=== PATIENT | female | born 1985 | race Caucasian/White ===

== ENCOUNTER 2019-09-01 13:27 | Outpatient (RCR) | payer OTHER, SELFPAY ==
[2019-09-01 13:27] VITALS: BP 128/75; PULSE 100
== END 2019-09-16 08:10 | disposition home or self-care (01) ==
LOC: ANHOBOP 13:27
PROVIDERS: PCP Family Medicine; Visit Provider Obstetrics & Gynecology
DX: O16.3 Unspecified maternal hypertension, third trimester (principal); Z3A.36 36 weeks gestation of pregnancy
CPT/HCPCS: 59025

== ENCOUNTER 2019-09-15 06:04 | Inpatient (IN) | payer OTHER, SELFPAY ==
[2019-09-15] VITALS (163 sets, daily range): BP systolic 76–152; BP diastolic 43–105; PULSE 66–153; RESP 12–18; TEMP 36.6–37.6; O2SAT 95–100; BMI 38.9
[2019-09-15 06:38] LABS: Basophils Absolute Auto 0.1 K/mm3 (0.0-0.1); Basophils Percent Auto 0.5 % (0.2-1.2); Eosinophils Absolute Auto 0.1 K/mm3 (0-0.3); Eosinophils Percent Auto 0.6 % (0-4.4); Hematocrit 34.6 % (37.0-47.0); Hemoglobin 11.5 g/dL (12.0-15.0); Immature Granulocyte Absolute 0.07 K/mm3 (0.00-0.031); Immature Granulocyte Percent A 0.7 % (0-0.5); Lymphocytes Absolute Auto 1.76 K/mm3 (0.9-3.2); Lymphocytes Percent Auto 18.8 % (18.3-44.2); Mean Corpuscular HGB Conc 33.2 g/dl (32-36); Mean Corpuscular Hemoglobin 29.5 pg (26-34); Mean Corpuscular Volume 88.7 fl (80-100); Mean Platelet Volume 9.7 fl (7.4-10.4); Monocytes Absolute Auto 0.7 K/mm3 (0.1-0.6); Monocytes Percent Auto 7.1 % (2.6-8.5); Neutrophils Absolute Auto 6.7 K/mm3 (1.3-6.7); Neutrophils Percent Auto 72.3 % (45.5-73.1); Platelet Count Result 203 k/mm3 (150-375); White Blood Count 9.3 K/mm3 (4.5-10.0)
--- NOTE | 2019-09-15 06:48 | LDADM ---
This patient, Tosha Vidal, was admitted to Labor/Delivery/Recovery 104 on 09/15/19 at 06:04. Plans for labor, pain management and were discussed with patient. Patient/family oriented to hospital policies and general routines including ID bracelet, bed and alarms, visiting hours, pain management, procedures, bathroom and other care routines, personal items, smoking policy, room service/diet and guest tray routines, security routines, and visiting hours. Patient/Family are encouraged to report perceived risks to care and to ask questions if they do not understand what they are told or what they should do. See OBIX for further documentation.
[2019-09-15] MEDS: LACTATED RINGERS 1,000 ML 125 ML IV CONT ×4 (07:30→18:53)
[2019-09-15] MEDS: OXYTOCIN 30 UNITS/NS 500 ML 30 UNITS/500 ML BAG IV CONT (07:30)
--- NOTE | 2019-09-15 07:52 | WPDOBADMIT ---
Obstetrics - Admit Note Admission Note: record reviewed. No pertinent additions to the history and/or any subsequent changes in the physical findings that are not consistent with the expected course of the were found. Additions to the history and/or subsequent changes in the physical findings follow. at 38 weeks for induction of labor due to chronic HTN. Cervix 3/50/-2. AROM with clear fluid. GBS negative.
[2019-09-15] MEDS: SODIUM CHLORIDE 0.9% IV 1,000 ML 150 ML I-UTERINE (10:15)
[2019-09-15 11:35] LABS: Rapid Plasma Reagin Non-Reactive (NonReactive)
--- NOTE | 2019-09-15 18:49 | P.PNOB_ITS ---
OB - PN: Subj Subjective Date/time seen: 09/15/19 18:49 OB - PN: Obj Data Labs CBC & Chem 7: 09/15/19 06:32 Labs: Laboratory Results - last 24 hr 09/15/19 09/15/19 09/15/19 06:32 06:32 06:32 WBC 9.3 RBC 3.90 L Hgb 11.5 L Hct 34.6 L MCV 88.7 MCH 29.5 MCHC 33.2 RDW 13.0 Plt Count 203 MPV 9.7 Immature Gran % (Auto) 0.7 H Neut % (Auto) 72.3 Lymph % (Auto) 18.8 Millard % (Auto) 7.1 Eos % (Auto) 0.6 Baso % (Auto) 0.5 Lymph # (Auto) 1.76 Millard # (Auto) 0.7 H Eos # (Auto) 0.1 Baso # (Auto) 0.1 Abs Immat Gran (auto) 0.07 H Absolute Neuts (auto) 6.7 Absolute Nucleated RBC 0.0 Nucleated RBC % 0.0 RPR Non-reactive Blood Type O Positive Antibody Screen Negative OB - PN A/P Assessment and Plan (1) Failure to progress in labor: Code(s): O62.2 - Other uterine inertia Status: Acute (2) Non-reassuring heart rate or rhythm affecting management of mother: Code(s): O36.8390 - Maternal care for abnormalities of the heart rate or rhythm, unspecified trimester, not applicable or unspecified Status: Acute Assessment and Plan: This patient is a 33-year-old 2 para 1001 at term who proceeded through labor to complete. There been nonreassuring heart tones throughout labor. She was unable to push the baby and make it descend. There was a failure to descend. That and the nonreassuring status are the indications for delivery. It was recommended the patient. She agreed to that. She understands the risks, benefits, and alternatives. She has completed the informed consent process is ready to proceed. Time Spent With Patient Time: Total time spent is greater than 50% in coordination of care (as documented) at patient's floor/unit and/or counseling patient:
[2019-09-15] MEDS: ceFAZolin 2 GM/D5W 50 ML 2 GM/50 ML BAG IVPB (19:06)
--- NOTE | 2019-09-15 19:25 | PM.OBPNLAB ---
Pain Control Date/time seen: 09/15/19 1700 Called to hospital for delivery. Upon arrival @ 1710 pt was pushing. FRH baseline 140-150's with decelerations. They have the appearance of variables but are late in timing. After pushing x 10 minutes with very minimal movement and anterior lip still present I decided to stop pushing and turn of pitocin to evaluate FHR further. 1730 Dr Gonzalez on unit and strip reviewed. Lates still present. Good variablity. Since she has had a previous vaginal delivery we have agreed to give her a little longer to progress. 1805 Pt feeling more pressure. Pushing resumed. 1840 Lates persistent and slower recovery. Dr Gonzalez present on unit still. Discussed my concerns and he agrees it is appropriate to proceed with . We both spoke with patient and and they agreed to proceed.
--- NOTE | 2019-09-15 20:21 | P.OP_ITS ---
Procedure Note - Detailed Date of procedure: 09/15/19 Pre-op diagnosis: Induction of Labor Term gestation, failure to descend, nonreassuring heart tones Post-op diagnosis: same (With malposition of the head, direct OP) Procedure performed: low-transverse delivery Description of procedure: The patient was taken the operating room. She was prepped and draped in the dorsal supine position with leftward tilt after induction of spinal anesthetic. When anesthesia was found to be adequate a low- transverse skin incision was made and carried down to the level the fascia with the knife. The fascial incision was made at the midline with a scalpel. The fascial incision was extended laterally with Chavez scissors. The fascia was tented upward superior and inferior with Miriam clamps. The rectus muscles were dissected off bluntly. The rectus muscles at the midline. The preperitoneal fat was dissected bluntly at the superior aspect of the separate the rectus muscles. The peritoneal cavity was entered bluntly in the same area. The peritoneal incision was extended superior and inferior with good visualization of bladder. Bladder blade was inserted. A low-transverse incision was made on the uterus with the scalpel. It was carried down the level of the amniotic cavity with a knife. The amniotic cavity bluntly. The uterine incision was made laterally with blunt traction. The infant was delivered. The cord was clamped and cut. The was handed off to waiting pediatric staff. Cord bloods were obtained. The placenta was removed manually. The uterus was exteriorized. Uterus cleared of all clots and debris. Uterus closed in 0 Vicryl in a running locked fashion. The uterine incision was extended bilaterally downward fashion likely. The cervix and to the vagina. Care was taken to close this area. Multiple sutures were used to make it hemostatic. Running sutures were used from the apex of the incision extension and ran medially. An imbricating layer of 0 Vicryl was also placed on the to bolster the closure. The uterus was returned to the abdomen. The gutters were cleared of all clots and debris. The fascia was closed 0 Vicryl in a running fashion. Subcutaneous tissue was irrigated and bleeding areas were cauterized. The skin was closed with subcuticular 4O monocril and covered with dermabond. The incision was covered with derma austin. The patient tolerated the procedure well. She was taken recovery room stable condition. Sponge, lap, needle counts were correct x2. Anesthesia: spinal Surgeon: Alejandra Gonzalez MD Estimated blood loss (mL): 950 Drains: No Packing: No Pathology: yes (Placenta) Complications: No immediate complications Condition: stable Disposition: floor Findings: Normal maternal anatomy. Average size infant with normal Apgars. No gross evidence of abruption. Extension of the uterine incision bilaterally in a distal direction to the vagina. Malposition of the head-direct OP
[2019-09-15] MEDS: LABETALOL HCL 100 MG TABLET 200 MG PO (22:15)
--- NOTE | 2019-09-15 22:41 | OBPPTRN ---
Patient transferred to post room #286 via bed with baby in bassinet. Support person present. Oriented to unit, room, information board, rooming in, admission packet and security measures. Patient verbalizes understanding.
[2019-09-16] VITALS (10 sets, daily range): BP systolic 110–129; BP diastolic 67–79; PULSE 87–111; RESP 15–20; TEMP 36.6–37.4; O2SAT 94–100
[2019-09-16] MEDS: KETOROLAC 30 MG/ML VIAL (*BKC) IV PUSH ×2 (01:06→09:32)
[2019-09-16] MEDS: OXYTOCIN 30 UNITS/NS 500 ML 30 UNITS/500 ML BAG 125 UNITS IV CONT (01:08)
[2019-09-16] MEDS: KCL 20 MEQ/D5/0.45% SOD CHL 1,000 ML 125 ML IV CONT (03:45)
[2019-09-16 05:56] LABS: Basophils Percent Auto 0.2 % (0.2-1.2); Eosinophils Percent Auto 0.1 % (0-4.4); Hematocrit 27.9 % (37.0-47.0); Hemoglobin 9.1 g/dL (12.0-15.0); Immature Granulocyte Absolute 0.11 K/mm3 (0.00-0.031); Immature Granulocyte Percent A 0.7 % (0-0.5); Lymphocytes Absolute Auto 1.45 K/mm3 (0.9-3.2); Lymphocytes Percent Auto 9.3 % (18.3-44.2); Mean Corpuscular HGB Conc 32.6 g/dl (32-36); Mean Corpuscular Hemoglobin 29.3 pg (26-34); Mean Corpuscular Volume 89.7 fl (80-100); Mean Platelet Volume 10.2 fl (7.4-10.4); Monocytes Percent Auto 6.5 % (2.6-8.5); Neutrophils Percent Auto 83.2 % (45.5-73.1); Platelet Count Result 160 k/mm3 (150-375); Red Blood Count 3.11 M/mm3 (4.2-5.4); Red Cell Distribution Width 12.9 % (11.5-14.5); White Blood Count 15.7 K/mm3 (4.5-10.0)
--- NOTE | 2019-09-16 07:49 | WPDANLDPN2 ---
Anes-Prog Note L&D Date/Time: 09/16/19 07:49 Comfortable throughout: section Neuraxial method: spinal Epidural/Spinal procedure site: clean & non-tender Neuro status: Neuro function grossly intact. Cardiovascular status: normal Respiratory status: normal Airway patency: baseline Mental status: baseline Post-Op hydration status: normal Vital Signs: Last Vital Signs Temp 36.8 C 09/16/19 04:00 Pulse 89 09/16/19 04:00 Resp 18 09/16/19 04:00 BP 115/71 09/16/19 04:00 Pulse Ox 97 09/16/19 04:00 I/O: Intake & Output 09/15/19 09/15/19 09/16/19 15:59 23:59 07:59 Intake Total 1999 1000 1350 Output Total 443 450 Balance 1999 557 900 Post-procedural complaints: none Patient feedback: Patient satisfied with anesthetic care.
--- NOTE | 2019-09-16 07:49 | WPDANLDNPN2 ---
Anes-Prog Note L&D-Neuraxial Date/Time: 09/16/19 07:49 Neuraxial medications: intrathecal PF morphine Opiod-related complaints: none Patient feedback: Patient satisfied with post-operative pain management.
[2019-09-16] MEDS: POLYSACCHARIDE IRON COMPLEX 150 MG CAPSULE PO ×2 (09:30→16:15)
[2019-09-16] MEDS: LABETALOL HCL 100 MG TABLET 200 MG PO ×2 (09:30→21:54)
[2019-09-16] MEDS: MULTIVIT/MIN/PREN/FOL AC/IRON TABLET 1 TAB PO (09:30)
[2019-09-16] MEDS: DOCUSATE SODIUM 100 MG CAPSULE PO ×2 (09:33→16:15)
--- NOTE | 2019-09-16 18:36 | P.PNOB_ITS ---
OB - PN: Subj Subjective Date/time seen: 09/16/19 18:36 Patient comments: no complaints, pain well controlled, tolerating diet and flatus present OB - PN: Obj Data Labs CBC & Chem 7: 09/16/19 04:22 Labs: Laboratory Results - last 24 hr 09/16/19 04:22 WBC 15.7 H RBC 3.11 L Hgb 9.1 L Hct 27.9 L MCV 89.7 MCH 29.3 MCHC 32.6 RDW 12.9 Plt Count 160 MPV 10.2 Immature Gran % (Auto) 0.7 H Neut % (Auto) 83.2 H Lymph % (Auto) 9.3 L Lawrence % (Auto) 6.5 Eos % (Auto) 0.1 Baso % (Auto) 0.2 Lymph # (Auto) 1.45 Lawrence # (Auto) 1.0 H Eos # (Auto) 0.0 Baso # (Auto) 0.0 Abs Immat Gran (auto) 0.11 H Absolute Neuts (auto) 13.0 H Absolute Nucleated RBC 0.0 Nucleated RBC % 0.0 OB - PN A/P Plan day: 1 Comments: Post Op LTCS - no problems, routine recovery Time Spent With Patient Time: Total time spent is greater than 50% in coordination of care (as documented) at patient's floor/unit and/or counseling patient: Exam Const: General: cooperative, healthy appearing, comfortable and no acute distress Resp: Auscultation: no crackles, no rales, no rhonchi and no wheezes Cardio: Rhythm: regular rhythm Heart sounds: no click and no murmurs GI: Inspection: non-distended Auscultation: normal bowel sounds Extrem: General: normal to inspection, no pedal edema and no calf tenderness
--- NOTE | 2019-09-17 07:30 | PM.OBPNVD ---
OB - PN: Subj Subjective Date/time seen: 09/17/19 07:30 Patient comments: no complaints, pain well controlled, incisional pain, tolerating diet and flatus present OB - PN: Obj Data Labs CBC & Chem 7: 09/16/19 04:22 OB - PN A/P Plan day: 2 Plan: routine care Comments: POD#2 LTCS - no problems, Patient wants D/C Time Spent With Patient Time: Total time spent is greater than 50% in coordination of care (as documented) at patient's floor/unit and/or counseling patient: Exam Const: General: comfortable, no acute distress and alert Resp: Effort & Inspection: normal respiratory effort Auscultation: no crackles, no rales and no rhonchi Cardio: Rate: regular rate Heart sounds: no click, no murmurs and no rubs GI: Inspection: non-distended GI Palp: No Tenderness to palpation present (GI) Auscultation: normal bowel sounds Other: Incision - CDI Extrem: General: normal to inspection, no pedal edema and no calf tenderness
--- NOTE | 2019-09-17 07:30 | PM.DS ---
DS: Admitting Diagnosis Admitting Diagnosis Admitting Diagnosis: Other uterine inertia DS: Discharge Diagnosis Discharge Diagnosis (1) Non-reassuring heart rate or rhythm affecting management of mother: Code(s): O36.8390 - Maternal care for abnormalities of the heart rate or rhythm, unspecified trimester, not applicable or unspecified Status: Acute (2) Failure to progress in labor: Code(s): O62.2 - Other uterine inertia Status: Acute (3) delivery delivered: Code(s): O82 - Encounter for delivery without indication Status: Acute DS: Summary Status at Discharge Functional status at discharge: independent ambulation Time Spent with Patient Time attestation: Total time spent providing and/or coordinating discharge services: Time spent: Less than 30 minutes DS: Data Data Completed and Pending Pending studies at discharge: Pending at discharge 09/15/19 19:31 Surgical [PTH] Routine Discharge Plan Discharge Discharging Clinician: Alejandra Gonzalez Patient Disposition: Home Health Service Diet: regular Patient Instructions: Antibiotic Form Stand Alone Forms: General Discharge Information Follow-up/Referrals: Alejandra Gonzalez MD [Physician] - Discharge Medications: New hydrocodone-acetaminophen 5-325 mg tablet 1 - 2 tablet PO Q4H PRN (Reason: pain) Qty: 25 RF: 0 Continued ferrous sulfate 325 mg (65 mg iron) tablet 325 mg PO BID RF: 0 labetalol 200 mg Tablet 200 mg PO Q12H RF: 0 ferrous sulfate 325 mg (65 mg iron) Tablet 325 mg PO DAILY RF: 0 PNV cmb#[id number]-ferrous fumarate-FA [] 28 mg iron- 800 mcg Tablet 1 tablet PO DAILY RF: 0 labetalol 200 mg tablet 200 mg PO Q12H Qty: 60 RF: 3 Date of admission: 09/15/19 06:04 Primary Care Provider: Florentino Del Valle Admitting Provider: Alejandra Gonzalez Attending physician on admission: Alejandra Gonzalez
[2019-09-17 08:45] VITALS: BP 133/84; PULSE 117; RESP 18; TEMP 37.3; O2SAT 100
[2019-09-17 08:55] VITALS: PULSE 110
[2019-09-17] MEDS: POLYSACCHARIDE IRON COMPLEX 150 MG CAPSULE PO (08:55)
[2019-09-17] MEDS: LABETALOL HCL 100 MG TABLET 200 MG PO (08:55)
[2019-09-17] MEDS: MULTIVIT/MIN/PREN/FOL AC/IRON TABLET 1 TAB PO (08:57)
[2019-09-17] MEDS: TETANUS,DIPHTHERIA,AC PERTUSSIS ADULT (0.5 ML) BOOSTRIX IM (11:31)
--- NOTE | 2019-09-17 14:02 | PC.NURSE ---
Called Dr. Gonzalez because pt decided to change her preferred pharmacy. Told Dr. Gonzalez the pharmacy that the pt. preferred to go to. It is [facility] in [place] on [address] Dr. Gonzalez stated that he will send her prescriptions to the new pharmacy via his office system and not through the hospital computer system. Told pt that even though the discharge paperwork states [facility] pharmacy that her prescriptions have been sent to [facility] per Dr. Gonzalez and to call him if there are any problems with this or other concerns once she returns to home. Pt. states understanding.
[2019-09-19 11:17] VITALS: BP 133/79; PULSE 96; RESP 20; TEMP 37.2; O2SAT 100
== END 2019-09-17 12:33 | disposition home or self-care (01) | DRG 788 ==
LOC: ANHLDR 06:04 → ANHOB2 22:50
PROVIDERS: Admitting Provider Obstetrics & Gynecology; PCP Family Medicine; Visit Provider Obstetrics & Gynecology
PROC: 10D00Z1 Extraction of Products of Conception, Low, Open Approach (ICD-10-PCS; CPT 59514; principal; 2019-09-15 19:00)
DX: O10.92 Unspecified pre-existing hypertension complicating childbirth (principal); Z37.0 Single live birth; Z3A.38 38 weeks gestation of pregnancy; O36.8330 Maternal care for abnormalities of the fetal heart rate or rhythm, third trimester, not applicable or unspecified; O32.4XX0 Maternal care for high head at term, not applicable or unspecified; O62.2 Other uterine inertia
CPT/HCPCS: 36415; 85025; 86592; 86850; 86900; 86901; 88307; 90715; A9270; J0131; J0690; J1885; J2274; J2370; J2405; J2590; J2795; J3010; J3480; J7030; J7120

== ENCOUNTER 2021-01-13 14:03 | Outpatient (CLI) | payer OTHER, SELFPAY ==
--- NOTE | ~2021-01-13 | CT_ITS ---
EXAMINATION: CT abdomen pelvis wo con DATE: 01/13/2021 14:17 INDICATION: Left lower abdominal pain, hematuria TECHNIQUE: Computed tomography (CT) of the abdomen and pelvis was performed without intravenous contr ast. Automated exposure control and iterative reconstruction technique were employed. Exam dose: 638 .03 mGy-cm total exam DLP. COMPARISON: 07/14/2016 complete abdominal ultrasound FINDINGS: The lung bases are clear of infiltrate or consolidation. Normal heart size. No pericardial or pleural effusion. The liver, gallbladder, bile ducts, spleen, pancreas, pancreatic duct, and adrenal glands and kidneys are unremarkable on this limited noncontrast examination. Normal caliber of the abdominal aorta. No intraperitoneal or retroperitoneal or pelvic adenopathy or ascites. There is an approximately 4.6 x 4.9 X 6.4 cm cystic lesion with attenuation of 17 Hounsfield units in the left adnexal area, likely a left ovarian or paraovarian cyst. Consider pelvic ultrasound correla tion. There is mild free fluid in the posterior cul-de-sac. The uterus and right adnexal area are unremarkable. The urinary bladder is unremarkable. Normal appendix. No bowel obstruction, bowel wall thickening, pneumatosis or intraperitoneal free air . Included skeletal structures are unremarkable. IMPRESSION: 4.6 x 4.9 x 6.4 cm cystic lesion of left adnexal area; consider pelvic ultrasound for fu rther evaluation Mild free fluid in the posterior cul-de-sac Reviewed, dictated and finalized at [facility]. Reviewed, dictated and finalized at location [facility]. IMPRESSION: 4.6 x 4.9 x 6.4 cm cystic lesion of left adnexal area; consider pe lvic ultrasound for further evaluation Mild free fluid in the posterior cul-de-sac
== END 2021-01-13 14:04 ==
PROVIDERS: PCP Family Medicine; Visit Provider Physician Assistant
DX: R10.9 Unspecified abdominal pain (principal); R31.0 Gross hematuria
CPT/HCPCS: 74176

== ENCOUNTER 2024-05-30 13:38 | Outpatient (CLI) | payer OTHER, SELFPAY ==
--- NOTE | ~2024-05-30 | XR_ITS ---
EXAMINATION: XR knee LT 3V DATE: 05/30/2024 14:11 INDICATION: Left knee pain. TECHNIQUE: 3 views of left knee including standing views were obtained. COMPARISON: None. FINDINGS: Alignment is normal. No fracture. There is mild osteoarthritis of medial compartment. No kn ee joint effusion. IMPRESSION: 1. Mild left knee osteoarthritis. Reviewed, dictated and finalized at location [facility]. 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
--- NOTE | ~2024-05-30 | XR_ITS ---
EXAMINATION: XR ankle RT 2V DATE: 05/30/2024 14:11 INDICATION: Pain in right ankle and joints of right foot. TECHNIQUE: 4 views of right ankle were obtained. COMPARISON: None. FINDINGS: Alignment is normal. No fracture. Joint spaces are normal. There is an enthesophyte at plan tar aspect of calcaneal tuberosity. IMPRESSION: 1. No fracture. Reviewed, dictated and finalized at location [facility]. 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 No fracture.
== END 2024-05-30 13:39 | disposition home or self-care (01) ==
LOC: GOSHIMG 13:39
PROVIDERS: PCP Student in an Organized Health Care Education/Training Program; Visit Provider Student in an Organized Health Care Education/Training Program
DX: M17.12 Unilateral primary osteoarthritis, left knee (principal); M25.571 Pain in right ankle and joints of right foot
CPT/HCPCS: 73562; 73600

== ENCOUNTER 2024-12-10 14:45 | Emergency (ER) | payer OTHER, SELFPAY ==
--- NOTE | ~2024-12-10 | CT_ITS ---
EXAMINATION: CTA brain carotid DATE: 12/10/2024 16:25 CDT INDICATION: Headache. TECHNIQUE: Computed tomographic angiography (CTA) of the head was performed without and with 100 mL Omnipaque-350 intravenous contrast. CTA of the neck was performed with intravenous contrast. The dose-length product was 1686.93 mGy-cm. Maximum intensity projection and volume rendered 3D-reconstructions were created by the technologist on a separate workstation. COMPARISON: None. FINDINGS: HEAD CTA: Brain parenchymal volume is normal for age. No acute intracranial hemorrhage, infarction, mass or mass effect. No ventriculomegaly or midline shift. No significant intracranial vascular abnormality . No significant stenosis, occlusion or aneurysm. The vertebral arteries are codominant. NECK CTA: The carotid and vertebral arteries are within normal limits throughout their cervical extent without evidence for significant stenosis, occlusion or dissection. Lung apices are normal. No cervical lymphadenopathy. IMPRESSION: 1: Unremarkable CT angiogram of the head and neck. Reviewed, dictated and finalized at location O.
[2024-12-10 14:57] VITALS: BP 151/95; PULSE 98; RESP 16; TEMP 37.1; O2SAT 100
[2024-12-10 15:07] VITALS: O2SAT 99
--- NOTE | 2024-12-10 15:29 | PC.NURSE ---
attempts made for iv and blood draw with no success- rn with ultrasound capabilities attempting now
[2024-12-10 15:54] LABS: Hematocrit 36.5 % (37.0-47.0); Hemoglobin 11.7 g/dL (12.0-15.0); Immature Granulocyte Percent A 0.2 % (0-0.5); Lymphocytes Absolute Auto 1.62 K/mm3 (0.9-3.2); Mean Corpuscular HGB Conc 32.1 g/dl (32-36); Mean Corpuscular Hemoglobin 27.5 pg (26-34); Mean Corpuscular Volume 85.9 fl (80-100); Nucleated Red Blood Cells Absolute Auto 0.000 K/mm3 (0.0-0.012); Nucleated Red Blood Cells Perc 0.0 % (0.0-0.2); Platelet Count Result 224 k/mm3 (150-375); Red Blood Count 4.25 M/mm3 (4.2-5.4); White Blood Count 6.1 K/mm3 (4.5-10.0)
[2024-12-10 15:57] LABS: BEDSIDEPREGUCG Negative (Negative)
[2024-12-10 16:08] LABS: Alanine Aminotransferase 12 U/L (6-35); Albumin Level 3.9 g/dL (3.5-5.1); Alkaline Phosphatase 143 U/L (38-126); Anion Gap 9 mmol/L (4-12); Aspartate Amino Transferase 21 U/L (14-36); Bilirubin,Total 0.3 mg/dL (0.2-1.3); Blood Urea Nitrogen 7 mg/dL (7-17); Calcium 9.2 mg/dL (8.4-10.2); Carbon Dioxide 24 mmol/L (22-30); Chloride 102 mmol/L (98-107); Estimated CRCL calculation 118 ml/min; Estimated Glomerular Filt Rate > 60; Glucose 121 mg/dL (65-110); Magnesium 1.7 mg/dL (1.6-2.3); Potassium 3.8 mmol/L (3.4-5.0); Sodium 135 mmol/L (137-145); Total Protein 8.1 g/dL (6.3-8.2)
[2024-12-10 16:09] LABS: Add Urine Microscopic? YES; Appearance Urine Cloudy (Clear); Glucose Urine UA Negative (Negative); Leukocyte Esterase Ur 1+ LEU/UL (Negative); Nitrate Urine Negative (Negative); Non Pathogenic Casts 0-2; Specific Grav Ur 1.008 (1.001-1.035)
--- NOTE | 2024-12-10 16:35 | ED.GENADULT ---
HPI - General Adult General Chief complaint: Headache Stated complaint: headache/dizzy since sunday Time Seen by Provider: 12/10/24 15:03 History of Present Illness HPI narrative: Patient 39-year-old female presents emergency department with chief complaint of headache. Patient reports he has not been feeling well since Sunday reports that it is more of a frontal type headache but also reports that she has been feeling dizzy as well as of the room spinning patient states that the headache has continued patient denies fever reports are primary care provider who sent her to the emergency department today Related Data Allergies Allergy/AdvReac Type Severity Reaction Status Date / Time latex Allergy Hives Verified 12/10/24 14:45 Review of Systems Review of Systems: A 10 system review of systems was completed on the patient and is negative except for what is stated in the HPI. Nursing and ancillary documentation was reviewed. [facility] Family History Family History Other Thyroid disease Father Hypertension High cholesterol Mother Hypertension High cholesterol Diabetes mellitus Anemia Grandparent High cholesterol Heart disease Diabetes mellitus Lung cancer Colon cancer Sibling Asthma Mother Hypertension Grandparent Hypertension Family history of cardiovascular disease Carcinoma of colon Social History Social History Smoking status: Never smoker Alcohol intake: never Substance use: never Gender identity (if verbalized by the patient): Female Spiritual care concerns: No Exam Narrative: GENERAL: Well-appearing, well-nourished, and in no acute distress. HEAD: Normocephalic, atraumatic. EYES: PERRLA and EOMI. ENT: Nares clear, no rhinorrhea or epistaxis. Mucous membranes moist. NECK: Supple. CHEST: Clear to auscultation. No respiratory distress. HEART: Regular rate and rhythm. No murmur heard. Normal peripheral pulses. ABDOMEN: Soft, nontender, nondistended, normal active bowel sounds. EXTREMITIES: Normal range of motion. No edema. SKIN: Warm, dry, no rash. NEURO: No focal deficits. Alert and oriented x3. PSYCH: Normal mood and affect. Course Vital Signs Vital signs: Vital Signs Temperature 37.1 C 12/10/24 14:57 Pulse Rate 98 12/10/24 14:57 Respiratory Rate 16 12/10/24 14:57 Blood Pressure 151/95 H 12/10/24 14:57 Pulse Oximetry 100 12/10/24 14:57 Temperature 37.1 C 12/10/24 14:57 Pulse Rate 98 12/10/24 14:57 Respiratory Rate 16 12/10/24 14:57 Blood Pressure 151/95 H 12/10/24 14:57 Pulse Oximetry 99 12/10/24 15:07 Oxygen Delivery Room Air 12/10/24 15:07 Medical Decision Making MDM Narrative Medical decision making narrative: Differential diagnosis includes strep pharyngitis, COVID, flu, RSV, intracranial hemorrhage, subarachnoid hemorrhage, cerebral aneurysm CT angiography of the head neck showed no evidence of aneurysm no evidence of subarachnoid hemorrhage or intraparenchymal hemorrhage. Patient has no focal neurological deficits Patient received IV fluids white blood cell count was normal at 6.1 electrolytes were within normal limits urinalysis showed 6-10 white blood cells 1+ leukocyte esterase 1+ bacteria COVID flu and RSV were negative strep was positive Vital Signs Vital Signs: Vital Signs Temperature 37.1 C 12/10/24 14:57 Pulse Rate 98 12/10/24 14:57 Respiratory Rate 16 12/10/24 14:57 Blood Pressure 151/95 H 12/10/24 14:57 Pulse Oximetry 100 12/10/24 14:57 Temperature 37.1 C 12/10/24 14:57 Pulse Rate 98 12/10/24 14:57 Respiratory Rate 16 12/10/24 14:57 Blood Pressure 151/95 H 12/10/24 14:57 Pulse Oximetry 99 12/10/24 15:07 Oxygen Delivery Room Air 12/10/24 15:07 Lab Data 12/10/24 15:38 12/10/24 15:38 Labs: Lab Results 12/10/24 12/10/24 12/10/24 Range/Units 15:04 15:38 15:54 WBC 6.1 (4.5-10.0) K/mm3 RBC 4.25 (4.2-5.4) M/mm3 Hgb 11.7 L (12.0-15.0) g/dL Hct 36.5 L (37.0-47.0) % MCV 85.9 (80-100) fl MCH 27.5 (26-34) pg MCHC 32.1 (32-36) g/dl RDW 12.4 (11.5-14.5) % Plt Count 224 (150-375) k/mm3 MPV 9.6 (7.4-10.4) fl Immature Gran % (Auto) 0.2 (0-0.5) % Neut % (Auto) 63.4 (45.5-73.1) % Lymph % (Auto) 26.5 (18.3-44.2) % Lynn % (Auto) 9.2 H (2.6-8.5) % Eos % (Auto) 0.0 (0-4.4) % Baso % (Auto) 0.7 (0.2-1.2) % Lymph # (Auto) 1.62 (0.9-3.2) K/mm3 Lynn # (Auto) 0.6 (0.1-0.6) K/mm3 Eos # (Auto) 0.0 (0-0.3) K/mm3 Baso # (Auto) 0.0 (0.0-0.1) K/mm3 Abs Immat Gran (auto) 0.01 (0.00-0.031) K/mm3 Absolute Neuts (auto) 3.9 (1.3-6.7) K/mm3 Absolute Nucleated RBC 0.000 (0.0-0.012) K/mm3 Nucleated RBC % 0.0 (0.0-0.2) % Sodium 135 L (137-145) mmol/L Potassium 3.8 (3.4-5.0) mmol/L Chloride 102 (98-107) mmol/L Carbon Dioxide 24 (22-30) mmol/L Anion Gap 9 (4-12) mmol/L BUN 7 (7-17) mg/dL Creatinine 0.62 L (0.7-1.0) mg/dL Estim Creat Clear Calc 118 ml/min Estimated GFR > 60 (59 - ) Glucose 121 H (65-110) mg/dL Calcium 9.2 (8.4-10.2) mg/dL Magnesium 1.7 (1.6-2.3) mg/dL Total Bilirubin 0.3 (0.2-1.3) mg/dL AST 21 (14-36) U/L ALT 12 (6-35) U/L Alkaline Phosphatase 143 H (38-126) U/L Total Protein 8.1 (6.3-8.2) g/dL Albumin 3.9 (3.5-5.1) g/dL Urine Color Yellow (Yellow) Urine Appearance Cloudy H (Clear) Urine pH 6.0 (5.0-9.0) Ur Specific Honor 1.008 (1.001-1.035) Urine Protein Negative (Negative) mg/dL Urine Glucose (UA) Negative (Negative) mg/dL Urine Ketones Negative (Negative) mg/dL Ur Blood (Man) Negative (Negative) Urine Nitrate Negative (Negative) Urine Bilirubin Negative (Negative) Urine Urobilinogen 0.2 (<2.0) mg/dL Leukocyte Esterase Rfl 1+ H (Negative) JARED/UL Urine RBC 0-2 (0-2) /hpf Urine WBC 6-10 H (0-3) /hpf Ur Squamous Epith Cells Moderate (Few) /hpf Urine Bacteria 1+ H /hpf Urine Casts 0-2 POC Urine HCG, Qual Negative (Negative) Influenza A (RT-PCR) Negative (Negative) Influenza B (RT-PCR) Negative (Negative) RSV (RT-PCR) Negative (Negative) SARS-CoV-2 RNA (RT-PCR) Negative (Negative) Group A Strep (PCR) Detected A (Negative) Discharge Plan Discharge Clinical Impression: Headache, Acute streptococcal pharyngitis Patient Disposition: Home Condition: Stable Instructions: Antibiotic Form, Strep Throat (ED), Acute Headache (ED) Patient Language: Mauritanian Prescriptions: New amoxicillin 500 mg capsule 500 mg PO Q12H Qty: 20 0RF No Action irbesartan-hydrochlorothiazide 300-12.5 mg tablet 1 tablet PO DAILY Qty: 90 1RF Follow-up/Referrals: Hans Hoang MD [Primary Care Provider, [facility]] Time of Disposition: 17:47
[2024-12-10 16:36] LABS: Strep Group A RT-PCR DETECTED (Negative)
[2024-12-10] MEDS: METOCLOPRAMIDE HCL INJ 10 MG/2 ML VIAL IV PUSH (16:36)
[2024-12-10] MEDS: MAGNESIUM SULF 1 GM/D5W 100 ML 1 GM/100 ML BAG IVPB (16:36)
[2024-12-10] MEDS: SODIUM CHLORIDE 0.9% IV 1,000 ML 999 ML IV CONT (16:36)
[2024-12-10 16:47] LABS: Influenza A QL RT-PCR Negative (Negative); Influenza B QL RT-PCR Negative (Negative); RSV RNA, RT-PCR Negative (Negative); SARS-CoV-2 RNA PCR Negative (Negative)
[2024-12-10] MEDS: KETOROLAC 15 MG/ML VIAL (*BKC) IV PUSH (17:05)
[2024-12-10] MEDS: MORPHINE SULFATE (*CRX) 4 MG/ML INJ IV PUSH (17:05)
--- NOTE | 2024-12-10 18:02 | PC.NURSE ---
patient ambulated to the bathroom with a steady gait
[2024-12-10 18:12] VITALS: BP 138/74; PULSE 87; RESP 18; O2SAT 99
[2024-12-12 15:28] LABS: Estimated CRCL calculation 106 ml/min; Estimated Glomerular Filt Rate > 60
== END 2024-12-10 18:06 | disposition home or self-care (01) ==
PROVIDERS: Emergency Provider Emergency Medicine; PCP Family Medicine
DX: J02.0 Streptococcal pharyngitis (principal); R51.9 Headache, unspecified; Z20.822 Contact with and (suspected) exposure to COVID-19
CPT/HCPCS: 36415; 70496; 70498; 80053; 81001; 81025; 82565; 83735; 85025; 87637; 87651; 96361; 96365; 96375; 99284; J1200; J1885; J2270; J2765; J3475; J7030; Q9967